=== PATIENT | female | born 1975 | race Hispanic/Latino ===

== ENCOUNTER 2019-07-18 03:55 | Emergency (ER) | payer BC, SELFPAY ==
[2019-07-18] MEDS ORDERED: Lorazepam 2 MG/ML VIAL ONE (04:20)
[2019-07-18 04:34] LABS: #Lymphocytes 1.1 thou/uL (1.20-3.40); #Monocytes 0.6 thou/uL (0.11-0.59); #Neutrophils 6.6 thou/uL (1.40-6.50); %Basophils 0.2 % (0.0-1.0); %Eosinophils 0.5 % (0.0-10.0); %Lymphocytes 12.7 % (21.0-51.0); %Monocytes 6.8 % (0.0-10.0); %Neutrophils 79.7 % (42.0-75.0); Hemoglobin 11.1 g/dL (12.0-16.0); Mean Corpuscular HGB CONC 33.4 g/dL (32.0-36.0); Mean Corpuscular Hemoglobin 28.7 pg (27.0-31.0); Mean Platelet Volume 6.5 fL (7.4-10.4); Platelet Count 210 thou/uL (130-400); RBC Distribution Width 13.7 % (11.5-14.5); Red Blood Cell (RBC) Count 3.87 mill/uL (4.20-5.40); White Blood Cell (WBC) Count 8.3 thou/uL (4.8-10.8)
[2019-07-18 04:50] LABS: BHCG - Serum Negative (NEGATIVE); Pregs Control Background? CLEAR/WHITE (CLR/WHITE); Pregs Control Bar Appear? YES (CONTROL BAR)
[2019-07-18 04:57] LABS: ALT (SGPT) 34 U/L (8-55); AST (SGOT) 50 U/L (5-34); Albumin 3.3 g/dL (3.5-5.0); Alkaline Phosphatase 53 U/L (40-110); Anion Gap 12 mmol/L (10-20); BUN (Urea Nitrogen) 15 mg/dL (7.0-18.7); Bilirubin, Total 0.5 mg/dL (0.2-1.2); Calc. Creatinine Clearance 0 mL/min (70-130); Calcium 8.2 mg/dL (7.8-10.44); Carbon Dioxide 27 mmol/L (22-29); Chloride 100 mmol/L (98-107); Estimated GFR-MDRD 69; Globulin 2.7 g/dL (2.4-3.5); Glucose 144 mg/dL (70-105); Potassium 3.8 mmol/L (3.5-5.1); Sodium 135 mmol/L (136-145)
--- NOTE | 2019-07-18 08:27 | RAD ---
FRONTAL VIEW CHEST: Date: 07/18/19 COMPARISON: 07/18/19. INDICATION: Chest pain. FINDINGS: No lobar consolidation, effusion, or pneumothorax. Minimal linear density at left lung base may be re lated to atelectasis. Otherwise, no acute process. IMPRESSION: Minimal linear density left lung base, which may be related to atelectasis. POS: [facility]
--- NOTE | 2019-07-18 09:33 | CT ---
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 PT reports that it "feels like s omething is sitting on my chest. 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 PT states that it was a stress induced cardiac césar nt. PT reports that she had lower extremity dopplers x2 months ago with no dvt. PT reports onset of d iarrhea yesterday but denies n/v and fever. PT reports that she was just on steroids x1 week ago and has a follow up with her oncologist tomorrow for possible in patient chemo. PT denies HX of HTN and d m. TECHNIQUE: Imaging protocol: Computed tomographic angiography of the chest with intravenous contrast. 3D rendering: MIP reconstructed images were created and reviewed. COMPARISON: No relevant prior studies available. FINDINGS: Pulmonary arteries: No dissection. No visualized embolism as characterized to the most proximal segme ntal level. Consider alternative form of imaging if indicated. Aorta: Unremarkable. No aortic aneurysm. No aortic dissection. Lungs: Lungs are well aerated without a focal area of consolidation. Pleural space: Unremarkable. No pneumothorax. No pleural effusion. Heart: No pericardial effusion Mediastinum: Soft tissues of the mediastinum appear unremarkable. Lymph nodes: Unremarkable. No enlarged lymph nodes. Bones/joints: Unremarkable. No acute fracture. Soft tissues: Soft tissues unremarkable Other findings: thoracic inlet is unremarkable. IMPRESSION: 1. No dissection. No visualized embolism as characterized to the most proximal segmental level. Consider alternative form of imaging if indicated. 2. Lungs are well aerated without a focal area of consolidation. Thank you for allowing us to participate in the care of your patient. Dictated and Authenticated by: David Otero MD 07/18/2019 6:09 AM Central Time ([place] & [place]) FINAL REPORT CT PULMONARY ANGIOGRAM WITH IV CONTRAST AND 3D POSTPROCESSING: FINDINGS/IMPRESSION: I agree with the preliminary report given by Ankita. POS: [facility]
[2019-07-18] MEDS ORDERED: Iopamidol-370 76% 500 ML 1 ML ONE (13:43)
== END 2019-07-18 06:31 | disposition home or self-care (01) ==
LOC: ERS 03:55
DX: R07.9 Chest pain, unspecified (principal); Z79.899 Other long term (current) drug therapy
CPT/HCPCS: 71045; 71275; 80053; 84443; 84484; 84703; 85025; 93005; J2060; Q9967